=== PATIENT | male | born 1935 | race Caucasian/White ===

== ENCOUNTER → 2016-12-03 | Outpatient (CLI) | payer MEDICARE ==
--- NOTE | 2016-12-09 10:08 | RSPPFT ---
DATE OF PROCEDURE: 12/03/16 COMMENTS: Spirometry with FVC of 2.9, FEV1 of 2.2, FEV1/FVC ratio at 76%. A positive and significant response to acutely inhaled bronchodilator noted. Slow vital capacity is 91% of predicted. TLC is 100% of predicted. Diffusion capacity is normal. IMPRESSION: 1. No evidence of airways obstruction. 2. No evidence of airways restriction. 3. Normal diffusion capacity. 4. Positive response to acutely inhaled bronchodilator.
== END ==
LOC: HRSP 12:59
PROVIDERS: ATTEND Internal Medicine Sleep Medicine
DX: R06.89 Other abnormalities of breathing (principal)
CPT/HCPCS: 94060; 94726; 94729